=== PATIENT | male | born 1945 | race Caucasian/White ===

== ENCOUNTER 2022-02-13 10:41 | Inpatient (IN) | payer MEDICARE, OTHER ==
[~2022-02-13] VITALS: Ht 160 cm; Wt 69.9 kg
[2022-02-13 10:44] VITALS: BP_SYST 188
[2022-02-13] MEDS ORDERED: MORPHINE 4 MG INJ. 4 MG/ML VIAL IVP ONE (11:15)
[2022-02-13] MEDS ORDERED: NACL 0.9% 1,000 ML IV ONE (11:15)
[2022-02-13] MEDS ORDERED: DIAZEPAM 5 MG TABLET (VALIUM) PO ONE (11:15)
[2022-02-13 11:43] LABS: BASOPHILS % (AUTO) 0.2 % (0.0-2.0); EOSINOPHILS % (AUTO) 0.1 % (0.0-4.0); HEMATOCRIT 34.7 % (36-54); LYMPHOCYTES # (AUTO) 0.7 K/uL (1.0-5.5); LYMPHOCYTES % (AUTO) 18.7 % (20.5-51.5); MEAN CORPUSCULAR VOLUME 90 fL (79.0-98.0); MONOCYTES # (AUTO) 0.5 K/uL (0.0-1.0); MONOCYTES % (AUTO) 13.5 % (1.7-9.3); NEUTROPHILS # (AUTO) 2.7 K/uL (1.8-7.7); NEUTROPHILS % (AUTO) 67.5 % (40.0-70.0); PLATELET COUNT (AUTO) 150 K/uL (130-430); RED BLOOD CELL COUNT(AUTO) 3.88 MIL/uL (4.2-6.2); RED CELL DISTRIBUTION WIDTH 13.3 % (9.0-15.0)
[2022-02-13 11:58] LABS: INR 1.1 (0.80-1.20)
[2022-02-13 12:02] LABS: ANION GAP 7 (5-15); CALCIUM 9.3 mg/dL (8.4-11.0); CHLORIDE 95 mmol/L (98-107); CREATININE 1.52 mg/dL (0.55-1.30); GLUCOSE 202 mg/dL (70-99); POTASSIUM 4.3 mmol/L (3.5-5.1); UREA NITROGEN, BLOOD 18 mg/dL (8-21)
[2022-02-13 12:10] LABS: ALANINE AMINOTRANSFERASE 25 U/L (12-78); ALBUMIN 4.1 g/dL (3.4-4.8); ASPARTATE AMINOTRANSFERASE 17 U/L (10-37); TOTAL BILIRUBIN 0.7 mg/dL (0.0-1.0)
[2022-02-13] MEDS ORDERED: ASPIRIN 81 MG TABLET(ECOTRIN) PO ONE ×2 (12:30→21:00)
[2022-02-13] MEDS ORDERED: TRAZ-251 PO (20:57)
[2022-02-13] MEDS ORDERED: LEVO25TA7 PO (20:58)
[2022-02-13] MEDS ORDERED: methocarbamoL 500 MG TABLET PO ONE (21:00)
[2022-02-13] MEDS ORDERED: SILD20TA PO (21:00)
[2022-02-13] MEDS ORDERED: LISI40TA13 PO (21:01)
[2022-02-13] MEDS ORDERED: OMEP20CA15 PO (21:02)
[2022-02-13] MEDS ORDERED: NOR10 PO (21:03)
[2022-02-13] MEDS ORDERED: HYDR-4037 PO (21:03)
[2022-02-13] MEDS ORDERED: SIMV-343 PO (21:03)
[2022-02-14 00:04] VITALS: BP_SYST 155
[2022-02-14 06:22] VITALS: BP_SYST 155
[2022-02-14 08:00] VITALS: BP_SYST 156
[2022-02-14 08:27] VITALS: BP_SYST 156
[2022-02-14 09:03] LABS: ANION GAP 12 (5-15); CHLORIDE 99 mmol/L (98-107); CREATININE 1.15 mg/dL (0.55-1.30); GLUCOSE 128 mg/dL (70-99); POTASSIUM 3.8 mmol/L (3.5-5.1); UREA NITROGEN, BLOOD 14 mg/dL (8-21)
[2022-02-14 09:12] LABS: ALANINE AMINOTRANSFERASE 15 U/L (12-78); ASPARTATE AMINOTRANSFERASE 17 U/L (10-37)
[2022-02-14] MEDS ORDERED: LEVOTHYROXINE SODIUM 0.025 MG TABLET PO ONE (10:00)
[2022-02-14] MEDS ORDERED: amLODIPine BESYLATE 10 MG TABLET PO ONE (10:00)
[2022-02-14] MEDS ORDERED: ASPIRIN 81 MG TAB.CHEW PO ONE (10:00)
[2022-02-14] MEDS ORDERED: lisinopriL 20 MG TABLET PO ONE (10:00)
[2022-02-14 14:14] LABS: BASOPHILS % (AUTO) 0.2 % (0.0-2.0); EOSINOPHILS % (AUTO) 0.6 % (0.0-4.0); LYMPHOCYTES # (AUTO) 1.3 K/uL (1.0-5.5); LYMPHOCYTES % (AUTO) 25.8 % (20.5-51.5); MEAN CORPUSCULAR VOLUME 90 fL (79.0-98.0); MONOCYTES # (AUTO) 0.8 K/uL (0.0-1.0); MONOCYTES % (AUTO) 15.6 % (1.7-9.3); NEUTROPHILS # (AUTO) 2.8 K/uL (1.8-7.7); NEUTROPHILS % (AUTO) 57.8 % (40.0-70.0); PLATELET COUNT (AUTO) 167 K/uL (130-430); RED BLOOD CELL COUNT(AUTO) 3.98 MIL/uL (4.2-6.2); RED CELL DISTRIBUTION WIDTH 13.6 % (9.0-15.0); WHITE BLOOD COUNT (AUTO) 4.9 K/uL (4.8-10.8)
[2022-02-14 15:21] LABS: TRIGLYCERIDES 81 mg/dL (30-150)
[2022-02-14 15:22] LABS: CHOLESTEROL 181 mg/dL (<200); HDL CHOLESTEROL 84 mg/dL (>45); LDL CHOLESTEROL 86 mg/dL (<100)
[2022-02-14 15:55] VITALS: BP_SYST 158
[2022-02-14] MEDS ORDERED: ASA81 PO (16:02)
[2022-02-14] MEDS ORDERED: cloNIDine HCL 0.1 MG TABLET PO ONE (16:30)
[2022-02-14 16:45] VITALS: BP_SYST 166
[2022-02-14] MEDS ORDERED: traZODone HCL 50 MG TABLET (DESYREL) PO SCH (21:00)
[2022-02-14] MEDS ORDERED: SIMVASTATIN 20 MG TABLET PO SCH (21:00)
[2022-02-15] MEDS ORDERED: LEVOTHYROXINE SODIUM 0.025 MG TABLET PO SCH (07:00)
[2022-02-15] MEDS ORDERED: lisinopriL 20 MG TABLET PO SCH (09:00)
[2022-02-15] MEDS ORDERED: ASPIRIN 81 MG TAB.CHEW PO SCH (09:00)
[2022-02-15] MEDS ORDERED: amLODIPine BESYLATE 10 MG TABLET PO SCH (09:00)
== END 2022-02-14 17:37 | disposition home or self-care (01) | DRG 552 ==
LOC: SED 10:41 → STU 20:40
PROVIDERS: ADMIT Internal Medicine; ATTEND Internal Medicine
DX: M47.816 Spondylosis without myelopathy or radiculopathy, lumbar region (principal); E03.9 Hypothyroidism, unspecified; E78.5 Hyperlipidemia, unspecified; M19.90 Unspecified osteoarthritis, unspecified site; E86.0 Dehydration; I08.0 Rheumatic disorders of both mitral and aortic valves; Z20.822 Contact with and (suspected) exposure to COVID-19; M54.59 Other low back pain; Z79.899 Other long term (current) drug therapy; Z82.49 Family history of ischemic heart disease and other diseases of the circulatory system
CPT/HCPCS: 36415; 71045; 72131; 76376; 80053; 80061; 83880; 84484; 85025; 85610-TC; 85730-TC; 93005; 93306; 96361; 96374; 99285; G0378; J2270